=== PATIENT | female | born 1985 | race African-American/Black ===

== ENCOUNTER 2017-01-27 11:48 | Emergency (ER) | payer BC ==
[~2017-01-27] VITALS: Ht 170.2 cm; Wt 101.4 kg
[2017-01-27 11:51] VITALS: Ht 170.2 cm; Wt 101.4 kg
[2017-01-27] MEDS ORDERED: INTE1KIT4 INJ (12:22)
[2017-01-27] MEDS ORDERED: MTR600 PO (12:22)
[2017-01-27] MEDS ORDERED: GABA-112 PO (12:22)
--- NOTE | 2017-01-27 13:16 | EMERGENCY ROOM VISIT NOTE ---
History Report prepared by Robb: Benedicto Perkins Under the Supervision of: Dr. Kaleb Damico D.O. First contact with patient: 12:54 Chief Complaint: DIZZY Stated Complaint: HAS MS, VERTIGO- BLURRED VISION, NAUSEA Nursing Triage Summary: see triage notes History of Present Illness The patient is a 31 year old female who presents to the Emergency Room with complaints of worsening blurry vision starting yesterday. The patient states that she is unable to focus unless she squints with one eye, and then it becomes blurry again after a while. She additionally states that this morning when she woke up she felt like the room was spinning. The patient states that she has a history of MS, and she states that she has an appointment with a neurologist in two weeks. She states that she takes Avonex for her MS. Source of History: patient Onset: yesterday Position: other (global) Quality: other (blurry vision) Timing: worsening Note: Associated symptoms: Room spinning Review of Systems See HPI for pertinent positives & negatives. A total of 10 systems reviewed and were otherwise negative. Past Medical & Surgical Medical Problems: (1) Multiple sclerosis Social History Smoking Status: Never Smoker Occupation Status: employed Current/Historical Medications Scheduled Gabapentin (Neurontin), 200 MG PO DAILY Ibuprofen (Ibuprofen), 600 MG PO DIRECTED Interferon Beta-1A (Avonex), 1 DOSE INJ WK Prednisone (Prednisone), 3 TAB PO DIRECTED Prednisone (Prednisone Tab), 3 TAB PO DAILY Allergies Coded Allergies: No Known Allergies (Unverified , 01/27/17) Physical Exam Vital Signs Date Time Temp Pulse Resp B/P (MAP) Pulse Ox O2 Delivery O2 Flow Rate FiO2 01/27/17 14:59 70 16 131/73 100 Room Air 01/27/17 14:59 37.3 75 18 125/84 100 01/27/17 12:37 75 18 129/79 100 Room Air 106/70 125/84 01/27/17 11:51 37.3 75 18 129/79 100 Room Air Physical Exam VITAL SIGNS: were reviewed as above. GENERAL:Non-toxic in appearance. SKIN: Warm dry and pink. HEAD: Normocephalic and atraumatic. OROPHARYNX: Is clear and moist NECK: Supple without lymphadenopathy or meningismus. LUNGS: clear. HEART: Regular rate and rhythm. ABDOMEN: Soft and nontender. EXTREMITIES: Warm and well perfused. NEUROLOGICALLY: Awake alert and oriented without focal deficit. Cranial nerves 2 -12 are intact. There is no pronator drift. Cerebellar testing is within normal limits. There is no nystagmus. There is no facial droop. Speech is clear. Vision is grossly normal. MUSCULOSKELETAL: Good muscle tone. No evidence of trauma. Medical Decision & Procedures Medications Administered Medications (Trade) Dose Ordered Sig/Lauren Route Start Time Stop Time Status Last Admin Dose Admin Prednisone (PredniSONE TAB) 60 mg NOW STAT PO 01/27/17 13:33 01/27/17 13:35 DC 01/27/17 14:03 60 MG ED Course 1254: Previous medical records were reviewed. The patient was evaluated in room B10. A complete history and physical examination was performed. 1324: I discussed the patient's case with Dr. Ronquillo, [facility], and he said that last time the patient had similar symptoms she was prescribed a prednisone taper, and she should be checked for a UTI. 1333: Prednisone Tab 60mg PO 1340: On reevaluation, the patient is feeling well. I discussed the results and findings with the patient. She verbalized agreement of the treatment plan. She was discharged home. Medical Decision Differential includes acute coronary syndrome, myocardial infarction, CVA, TIA, anemia, infection, pneumonia, UTI, pyelonephritis, poor nutrition, dehydration, electrolyte disturbance,hypoglycemia. This is a 31-year-old female who presents to the ED with a chief complaint of some vertigo which she describes as room spinning. She also reports that she has some difficulty focusing. The patient reports a little nausea associated with the vertigo. She reports a history of MS and has had similar symptoms in the past with regards to her MS. The patient is currently being followed by a neurologist from the [facility] Dr. Maura Mccray. She is currently on Avonex. She states that she has an appointment to see a local neurologist on February 07 from the [facility] group. I spoke with Dr. Ronquillo from the [facility] neurology service. The patient has had similar subjective symptoms in the past and been placed on prednisone taper for this. A urine dip did not show infection. The patient was placed on prednisone taper. She was given 1 dose here. She is felt to be stable for discharge. The patient's neurologic exam is completely normal. Medication Reconcilliation Current Medication List: was personally reviewed by me Blood Pressure Screening Patient's blood pressure: Normal blood pressure Consults Time Called: 1320 Consulting Physician: Dr. Ronquillo, [facility] Returned Call: 1324 I discussed the patient's case with Dr. Ronquillo, [facility], and he said that last time the patient had similar symptoms she was prescribed a prednisone taper, and she should be checked for a UTI Impression Primary Impression: Vertigo Additional Impression: Multiple sclerosis Scribe Attestation The scribe's documentation has been prepared under my direction and personally reviewed by me in its entirety. I confirm that the note above accurately reflects all work, treatment, procedures, and medical decision making performed by me. Departure Information Dispostion Home / Self-Care Prescriptions Prednisone (Prednisone Tab) 20 Mg Tab 3 TAB PO DAILY, #12 TAB FOR 4 DAYS Prov: Kaleb Damico D.O. 01/27/17 Prednisone (Prednisone) 20 Mg Tab 3 TAB PO DIRECTED, #14 TAB 3 tablets daily for 3 days, 2 tablets daily for 2 days, 1 tablet daily for 1 day. Prov: Kaleb Damico D.O. 01/27/17 Referrals No Doctor, Assigned (PCP) Forms HOME CARE DOCUMENTATION FORM, IMPORTANT VISIT INFORMATION Patient Instructions My [facility] [employer] Additional Instructions Prednisone: Starting tomorrow take 3 tablets daily for 3 days, 2 tablets daily for 2 days and then one tablet daily for one day. Follow-up with neurology. Return for any concerns or worsening. Problem Qualifiers
[2017-01-27] MEDS ORDERED: PRED20TA2 PO (14:50)
[2017-01-27] MEDS ORDERED: PRED20TA PO (14:50)
[2017-01-27 14:59] VITALS: BP 131/73; PULSE 70; TEMP 37.3; O2SAT 100
== END 2017-01-27 15:00 | disposition home or self-care (01) ==
LOC: C.EDB 11:49
DX: R42 Dizziness and giddiness (principal); G35 Multiple sclerosis; Z79.899 Other long term (current) drug therapy

== ENCOUNTER → 2017-04-05 | Outpatient (CLI) | payer BC ==
[~2017-04-05] MED LIST: GABA-112 PO; INTE1KIT4 INJ; MTR600 PO; PRED20TA PO; PRED20TA2 PO
== END | disposition home or self-care (01) ==
LOC: C.LABSPEC 13:46
PROVIDERS: ATTEND Physician Assistant
DX: N89.8 Other specified noninflammatory disorders of vagina (principal)

== ENCOUNTER → 2017-04-11 | Outpatient (CLI) | payer BC ==
[~2017-04-11] MED LIST changes: +GADAVIST IV PRN
--- NOTE | 2017-04-11 09:04 | DIAGNOSTIC IMAGING REPORT ---
MRI THE THORACIC SPINE WITHOUT AND WITH GADOLINIUM CLINICAL HISTORY: Multiple sclerosis. Recent onset of lower limb numbness. COMPARISON STUDY: No previous studies for comparison. FINDINGS: Imaging was performed in the sagittal and axial planes, before and after the administration of 9.5 cc of intravenous Gadavist. There are no suspicious areas of marrow replacement. No disc herniations are visualized. No thoracic cord lesions are visualized. Postcontrast images reveal no pathologically enhancing lesions. IMPRESSION: Normal MRI of the thoracic spine. Electronically signed by: Hugh Patton M.D. 04/11/2017 9:03 AM Dictated Date/Time: 04/11/2017 9:00 AM
--- NOTE | 2017-04-11 09:12 | DIAGNOSTIC IMAGING REPORT ---
LUMBAR SPINE COMBINATION CLINICAL HISTORY: 31 years-old Female presenting with MS diagnosed in 2011, recent onset lower limb numbness, no headache or dizziness or other complaints. TECHNIQUE: Multisequence, multiplanar MR imaging of the lumbar spine was performed before and after the administration of intravenous contrast. IV contrast: 9.5 mL of Gadavist. COMPARISON: None. FINDINGS: Localizer images: Unremarkable. Normal lumbar lordosis. Vertebral bodies maintain normal height, alignment, and bone marrow signal intensity. Intervertebral disc spaces preserved. No degenerative change. No neural foraminal or spinal canal narrowing. Spinal cord ends in good position at the inferior endplate of L1. Cauda equina normal in morphology. Abnormal signal intensity of the spinal cord at T11 is partially visualized on sagittal imaging only. Postcontrast imaging does not include this level. Please see separately dictated MR of the thoracic spine. Postcontrast imaging within the lumbar spine demonstrates no abnormal enhancement. Paraspinal soft tissues within normal limits. IMPRESSION: 1. Normal lumbar spine. No evidence of demyelinating disease in the lumbar region. Partially visualized abnormal signal intensity in the thoracic spinal cord at T11. Please see separately dictated MR of the thoracic spine. Electronically signed by: Yonny Atwood M.D. 04/11/2017 9:11 AM Dictated Date/Time: 04/11/2017 8:58 AM
== END | disposition home or self-care (01) ==
LOC: C.MRIBC 06:55
PROVIDERS: ATTEND Physician Assistant
DX: G35 Multiple sclerosis (principal)

== ENCOUNTER → 2017-05-11 | Outpatient (CLI) | payer OTHER ==
[~2017-05-11] MED LIST changes: -GADAVIST IV PRN
== END | disposition home or self-care (01) ==
LOC: C.LABSPEC 13:37
PROVIDERS: ATTEND Obstetrics & Gynecology
DX: R82.90 Unspecified abnormal findings in urine (principal)